=== PATIENT | male | born 1955 | race Caucasian/White ===

== ENCOUNTER 2019-05-14 12:15 | Emergency (ER) | payer OTHER ==
[~2019-05-14] VITALS: Ht 182.9 cm; Wt 124.7 kg
[2019-05-14 12:30] VITALS: Ht 182.9 cm; Wt 124.7 kg
[2019-05-14 15:59] VITALS: BP 122/98
== END 2019-05-14 15:59 | disposition home or self-care (01) ==
LOC: ED 12:15
DX: S01.21XA Laceration without foreign body of nose, initial encounter (principal); R10.11 Right upper quadrant pain; X58.XXXA Exposure to other specified factors, initial encounter; Y93.89 Activity, other specified; Y92.89 Other specified places as the place of occurrence of the external cause; Y99.8 Other external cause status
CPT/HCPCS: 90715; J2001; Q0092